=== PATIENT | male | born 1985 | race Caucasian/White ===

== ENCOUNTER → 2021-07-27 10:12 | Outpatient (NON) | payer OTHER, SELFPAY ==
[2020-05-07 21:33] LABS: SARS-CoV-2 RNA PCR Negative
== END | disposition home or self-care (01) ==
PROVIDERS: PCP Registered Nurse; Visit Provider Registered Nurse
DX: R05 Cough (principal); Z20.828 Contact with and (suspected) exposure to other viral communicable diseases
CPT/HCPCS: 87635; C9803; U0003